=== PATIENT | male | born 1940 | race African-American/Black ===

== ENCOUNTER 2017-04-08 12:20 | Emergency (ER) | payer MEDICARE, OTHER ==
[2017-04-08 12:27] VITALS: BP 120/78
--- NOTE | 2017-04-08 13:18 | ER Document Report ---
ED General - General Mode of Arrival: Ambulatory Information source: Patient <BRENDA MOLINA - Last Filed: 04/08/17 13:38> <LYNDONALBERTO Jones - Last Filed: 04/09/17 20:07> - General Chief Complaint: Ear Pain Stated Complaint: FACIAL PAIN Time Seen by Provider: 04/08/17 13:12 Notes: Patient is a 76 year old male with no significant medical history presents to the emergency department complaining of a right temporal pain that radiates from his right ear onset 4 days ago. Patient also complains of a small cough. Patient denies fevers, congestion, chest pain, shortness of breath, vomiting, or nausea. Patient does not take any medications. (JESSEBRENDA) - Related Data Allergies/Adverse Reactions: No Known Allergies Allergy (Verified 04/08/17 13:23) Past Medical History - General Information source: Patient - Social History Smoking Status: Current Every Day Smoker - Immunizations Hx Diphtheria, Pertussis, Tetanus Vaccination: Yes <JESSELOUJOSE - Last Filed: 04/08/17 13:38> - General Information source: Patient - Social History Smoking Status: Unknown if Ever Smoked Family History: Reviewed & Not Pertinent <ALBERTO HANEY Karen - Last Filed: 04/09/17 20:07> Review of Systems - Review of Systems Constitutional: No symptoms reported EENT: See HPI Cardiovascular: No symptoms reported Respiratory: No symptoms reported Gastrointestinal: No symptoms reported Genitourinary: No symptoms reported Male Genitourinary: No symptoms reported Musculoskeletal: No symptoms reported Skin: No symptoms reported Hematologic/Lymphatic: No symptoms reported Neurological/Psychological: No symptoms reported -: Yes All other systems reviewed and negative <JESSEBRENDA DRAPER - Last Filed: 04/08/17 13:38> Physical Exam <JESSE,LOUJOSE - Last Filed: 04/08/17 13:38> <ALBERTO HANEY Karen - Last Filed: 04/09/17 20:07> - Vital signs Vitals: Temp Pulse Resp BP Pulse Ox 97.9 F 70 16 120/78 100 04/08/17 12:25 04/08/17 12:25 04/08/17 12:25 04/08/17 12:25 04/08/17 12:25 - Notes Notes: GENERAL: Alert, interacts well. No acute distress. HEAD: Normocephalic, atraumatic. EYES: Pupils equal, round, and reactive to light. Extraocular movements intact. ENT: Oral mucosa moist, tongue midline. Fluid behind right TM, bulging, no purulence. Left cerumen impaction, unable to see tympanic membrane. NECK: Full range of motion. Supple. Trachea midline. LUNGS: Clear to auscultation bilaterally, no wheezes, rales, or rhonchi. No respiratory distress. HEART: Regular rate and rhythm. No murmurs, gallops, or rubs. ABDOMEN: Soft, non-tender. Non-distended. Bowel sounds present in all 4 quadrants. EXTREMITIES: Moves all 4 extremities spontaneously. NEUROLOGICAL: Alert and oriented x3. Normal speech. PSYCH: Normal affect, normal mood. SKIN: Warm, dry, normal turgor. No rashes or lesions noted. (BRENDA MOLINA) Course <BRENDA MOLINA - Last Filed: 04/08/17 13:38> <ALBERTO HANEY - Last Filed: 04/09/17 20:07> - Re-evaluation Re-evalutation: 04/08/17 13:35 Patient well-appearing with mild bulging with no signs of infection of right tympanic membrane and no signs of mastoiditis on exam. Left ear has cerumen impaction. Will provide azelastine and debrox, f/u in 2-3 days if symptoms continue or worsening of symptoms be evaluated sooner. (ALBERTO HANEY) - Vital Signs Vital signs: Temp Pulse Resp BP Pulse Ox 97.9 F 70 16 120/78 100 04/08/17 12:25 04/08/17 12:25 04/08/17 12:25 04/08/17 12:25 04/08/17 12:25 Discharge <BRENDA MOLINA - Last Filed: 04/08/17 13:38> <ALBERTO HANEY - Last Filed: 04/09/17 20:07> - Discharge Clinical Impression: Excessive cerumen in left ear canal Sinusitis, acute Qualifiers: Sinusitis location: unspecified location Recurrence: not specified as recurrent Qualified Code(s): J01.90 - Acute sinusitis, unspecified Condition: Stable Disposition: HOME, SELF-CARE Prescriptions: Azelastine HCl 205.5 mcg NS BID PRN #1 bottle PRN Reason: Carbamide Peroxide [Debrox 6.5 % Otic Drops 15 ml] 10 drop OT BID #1 bottle Scribe Attestation: 04/09/17 20:07 I personally performed the services described documentation, reviewed and edited the documentation which was dictated to describe my presence, and it accurately records my words and actions. (ALBERTO HANEY) Scribe Documentation - Scribe Written by Scribe:: Rain Kingston, 04/08/2017 13:31 acting as scribe for :: Lyndon <BRENDA MOLINA - Last Filed: 04/08/17 13:38>
== END 2017-04-08 13:58 | disposition home or self-care (01) ==
LOC: ER 12:20
DX: H61.22 Impacted cerumen, left ear (principal); J01.90 Acute sinusitis, unspecified; R51 Headache; R05 Cough
CPT/HCPCS: 99282